=== PATIENT | male | born 1995 | race Caucasian/White ===

== ENCOUNTER 2021-06-19 13:27 | Emergency (ER) | payer MEDICAID ==
[~2021-06-19] VITALS: Ht 170.2 cm; Wt 63.5 kg
[2021-06-19 13:48] VITALS: BP 122/75
[2021-06-19] MEDS ORDERED: MUPI22OI2 TP (15:35)
== END 2021-06-19 15:45 | disposition home or self-care (01) ==
LOC: ER 13:27
DX: F42.4 Excoriation (skin-picking) disorder (principal); F41.9 Anxiety disorder, unspecified; F17.200 Nicotine dependence, unspecified, uncomplicated